=== PATIENT | male | born 1995 | race African-American/Black ===

== ENCOUNTER 2019-02-14 03:47 | Emergency (ER) | payer SELFPAY ==
[2019-02-14] MEDS ORDERED: RINGERS SOLUTION,LACTATED 1,000 ML IV ONE (05:12)
[2019-02-14 06:33] LABS: HEMATOCRIT 44.4 % (37.9-51.0); HEMOGLOBIN 15.2 g/dL (13.5-17.0); MEAN CORPUSCULAR HEMOGLOBIN 31.5 pg (27.0-33.4); MEAN CORPUSCULAR HGB CONC 34.1 g/dL (32.0-36.0); MEAN CORPUSCULAR VOLUME 92 fl (80-97); PLATELET COUNT 214 10^3/uL (150-450); RED BLOOD COUNT 4.81 10^6/uL (4.35-5.55); RED CELL DISTRIBUTION WIDTH 12.7 % (11.5-14.0); WHITE BLOOD COUNT 6.9 10^3/uL (4.0-10.5)
[2019-02-14 06:52] LABS: ALBUMIN 4.8 g/dL (3.5-5.0); ALKALINE PHOSPHATASE 62 U/L (38-126); ANION GAP 10 (5-19); ASPARTATE AMINO TRANSFERASE 21 U/L (17-59); BILIRUBIN,DIRECT 0.1 mg/dL (0.0-0.4); BILIRUBIN,TOTAL 0.9 mg/dL (0.2-1.3); BLOOD UREA NITROGEN 18 mg/dL (7-20); CALCIUM 9.7 mg/dL (8.4-10.2); CARBON DIOXIDE 27 mmol/L (22-30); CHLORIDE 102 mmol/L (98-107); GLUCOSE 73 mg/dL (75-110); POTASSIUM 4.2 mmol/L (3.6-5.0); TOTAL PROTEIN 7.9 g/dL (6.3-8.2)
--- NOTE | 2019-02-14 07:37 | RADIOLOGY REPORT (SQ) ---
Chest single view on 02/14/2019 at 5:37 AM CLINICAL INDICATION: Chest pain, abnormal weight loss COMPARISON: None FINDINGS: The lungs are clear. Cardiac, hilar and mediastinal contours are within normal limits. Pulmonary vascularity is within normal limits. No bony abnormality is noted. IMPRESSION: No active disease.
[2019-02-14 08:15] LABS: APPEARANCE,URINE CLEAR; BILIRUBIN,URINE NEGATIVE (NEGATIVE); COLOR,URINE YELLOW; GLUCOSE, URINE NEGATIVE (NEGATIVE); KETONES,URINE TRACE mg/dL (NEGATIVE); LEUKOCYTE ESTERASE,URINE NEGATIVE (NEGATIVE); NITRITE,URINE NEGATIVE (NEGATIVE); PROTEIN,URINE NEGATIVE (NEGATIVE); UROBILINOGEN,URINE NEGATIVE mg/dL (<2.0)
[2019-02-14 08:22] VITALS: BP 108/61
[2019-02-14 08:33] LABS: URINE AMPHETAMINES SCREEN UNCONFIRMED POSITIVE; URINE BARBITURATES SCREEN NEGATIVE; URINE BENZODIAZEPINES SCREEN NEGATIVE; URINE COCAINE SCREEN NEGATIVE; URINE MARIJUANA (THC) SCREEN NEGATIVE; URINE METHADONE SCREEN NEGATIVE; URINE PHENCYCLIDINE SCREEN NEGATIVE
--- NOTE | 2019-02-14 09:24 | ER Document Report ---
Entered by YAMILA RODRIGUEZ SCRIBE 02/14/19 0748 Acting as scribe for:MARK BELL MD ED General <CHEVY SWAIN - Last Filed: 02/14/19 10:25> - General TRAVEL OUTSIDE OF THE [place] IN LAST 30 DAYS: No <MARK BELL - Last Filed: 02/14/19 12:08> - General Chief Complaint: Weakness Stated Complaint: ABDOMINAL PAIN,NAUSEA Time Seen by Provider: 02/14/19 04:54 Primary Care Provider: [facility] [Outside] - Follow up as needed JOSH QUEZADA DO [Primary Care Provider] - Follow up as needed Notes: 23-year-old male who presents to the emergency department today with complaints of "feeling dehydrated". Patient states he has been drinking a lot, has had double vision, dry lips, and his body has been shaking. Patient does endorse a history of anxiety and he states "my mother thinks I am bipolar". Patient states he has been having mood swings for several years, starting at about the age of 17. Patient states as a child he was treated for anger management and ADHD but has not been on any medication for several years. Patient states he has been trying to gain weight but has not been successful, stating he might have even lost a few pounds. Patient then states that he does not have a lot of money and if he is not at work he only eats once a day. Patient states that meal would consist of 3 to 4 packs of Ramen noodles. Patient states when he is at work he does eat large meals. Patient works at [employer]. (MARK BELL) Past Medical History - General Information source: Patient - Social History Smoking Status: Current Every Day Smoker Cigarette use (# per day): Yes - 1/2 ppd Frequency of alcohol use: Rare Drug Abuse: None Lives with: Family Family History: Reviewed & Not Pertinent Patient has suicidal ideation: No Patient has homicidal ideation: No <MARK BELL - Last Filed: 02/14/19 12:08> Review of Systems - Review of Systems Constitutional: See HPI, Other - feels dehydrated EENT: See HPI, Blurred vision, Double vision Cardiovascular: See HPI, Lightheaded Respiratory: No symptoms reported Gastrointestinal: No symptoms reported Genitourinary: No symptoms reported Male Genitourinary: No symptoms reported Musculoskeletal: No symptoms reported Skin: No symptoms reported Hematologic/Lymphatic: No symptoms reported Neurological/Psychological: See HPI -: Yes All other systems reviewed and negative <MARK BELL - Last Filed: 02/14/19 12:08> Physical Exam <MARK BELL - Last Filed: 02/14/19 12:08> - Vital signs Vitals: Temp Pulse Resp BP Pulse Ox 98.0 F 86 16 117/71 98 02/14/19 03:52 02/14/19 03:52 02/14/19 03:52 02/14/19 03:52 02/14/19 03:52 - Notes Notes: Physical Exam: General: Alert, appears well, thin. HEENT: Normocephalic. Atraumatic. PERRL. Extraocular movements intact. Oropharynx clear. Thyroid is normal. Neck: Supple. Non-tender. Respiratory: No respiratory distress. Clear and equal breath sounds bilaterally. Cardiovascular: Regular rate and rhythm. Abdominal: Normal Inspection. Non-tender. No distension. Normal Bowel Sounds. Back: No gross abnormalities. Extremities: Moves all four extremities. Upper extremities: Normal inspection. Normal ROM. Lower extremities: Normal inspection. No edema. Normal ROM. Neurological: Normal cognition. AAOx4. Normal speech. Psychological: Normal affect. Normal Mood. Skin: Warm. Dry. Normal color. (MARK BELL) Course - Laboratory Result Diagrams: 02/14/19 06:12 02/14/19 06:12 <CHEVY SWAIN - Last Filed: 02/14/19 10:25> - Laboratory Result Diagrams: 02/14/19 06:12 02/14/19 06:12 - EKG Interpretation by Tx EKG shows normal: Sinus rhythm, [place], Intervals, QRS Complexes. abnormal: ST-T Waves - ST elevation, probable normal early repolarization Rate: Normal - 58 Rhythm: NSR [place]/QRS: RBBB - Incomplete right bundle branch block Voltage: Throughout P Waves: LAE - Probable left atrial abnormality <MARK BELL - Last Filed: 02/14/19 12:08> - Re-evaluation Re-evalutation: 02/14/19 09:04 After a positive drug screen for methamphetamine, the patient admits to taking someone's Adderall yesterday. (RAY,MARK) - Vital Signs Vital signs: Temp Pulse Resp BP Pulse Ox 98.0 F 64 16 108/61 99 02/14/19 08:21 02/14/19 08:21 02/14/19 03:52 02/14/19 08:21 02/14/19 08:21 - Laboratory Laboratory results interpreted by me: 02/14/19 02/14/19 06:12 06:12 Glucose 73 L Urine Ketones TRACE H Discharge <CHEVY SWAIN - Last Filed: 02/14/19 10:25> <MARK BELL - Last Filed: 02/14/19 12:08> - Discharge Clinical Impression: Anxiety Condition: Stable Disposition: HOME, SELF-CARE Additional Instructions: You have been evaluated by both medical and behavioral teams and have been deemed appropriate for discharge and return to work. You have been provided with a community mental health resource list to assist with mental health services and medication management. Please follow up with a mental health provider and a physician to assist with medication management. You have been provided with prescription program information to assist with medication costs. It is advised that you refrain from taking prescription medications prescribed to others. You have been provided with the contact information to mobile crisis, as needed. AMPHETAMINE / METHAMPHETAMINE ABUSE: Amphetamines are addicting stimulants. Amphetamines overstimulate the nervous system and give a false feeling of power and mastery. These drugs may be obtained as prescription pills for weight loss, narcolepsy, or attention-deficit disorder. More often they're bought as an illegal street drug, methamphetamine (crank, crystal, speed). Using amphetamines repeatedly can lead to serious medical problems including malnutrition, severe depression, and paranoia. It can take increasing amounts to feel good. Eventually, there will be a "burn out." When you go off amphetamines there is a period of depression that may last for weeks or even months. High doses of amphetamines can cause seizures, confusion, hallucinations, delusions, high blood pressure, muscle damage, heart damage, or sudden . Many times these deadly complications occur even with "normal" doses. Injection of amphetamines is risky for developing abscesses, endocarditis (heart infection), pneumonia, and AIDS. Withdrawal from amphetamines often causes anxiety, depression, and drug cravings. Some users become paranoid and psychotic. There may be cramps, nausea, and vomiting. Many treatment programs are available, but you must make the decision to quit. Medication can be prescribed to control the symptoms of amphetamine toxicity (beta blockers or benzodiazepines). Withdrawal symptoms may require tranquilizers. Anxiety The physician feels that some of your health problems are being caused by anxiety. Anxiety affects your health in many ways. Anxiety alone can cause palpitations, sweats, chest pains, abdominal pains, shortness of breath, and headaches. It contributes to ulcer disease, high blood pressure, irritable bowel syndrome, and has been shown to cause flare-ups of many other diseases. Anxiety is not a simple disorder to treat. If the anxiety is due to recent life stresses, you may simply need time to "work through" the changes. If the anxiety is due to an underlying unhappiness with yourself or due to psychiatric disturbance, professional help will be needed. Your physician can refer you for further help if needed. Anti-anxiety medication is occasionally given if the stress is acute or if you are having trouble sleeping. Chronic or frequent use of these medications is not a good idea because the body becomes reliant on it, preventing you from dealing with life's normal stresses. Depression Your evaluation reveals that you have mental depression. While symptoms may be vague, they often include disturbance of sleep, fatigue, loss of appetite, and general loss of interest in life. While depression may be a side effect of drugs, or a reaction to a major change in your life, many cases have no known cause. If depression is acute, and related to a major loss in your life, you can expect it to clear completely with time. If you have been depressed a long time, are prone to repeated bouts of depression or low mood, or have been thinking of suicide, get help. Depression can be treated with anti-depressant medication and counselling. Long-term depression will often take a few weeks to clear, even with appropriate medication. Follow-up care is important. Contact your physician, the hospital emergency center, crisis line, or your counsellor if you are losing control or having self-destructive thoughts. FOLLOW-UP CARE: If you have been referred to a physician for follow-up care, call the [facility] office for an appointment as you were instructed or within the next two days. If you experience worsening or a significant change in your symptoms, notify the physician immediately or return to the Emergency Department at any time for re-evaluation. Prescriptions: Buspirone HCl [Buspar 5 mg Tablet] 1 tab PO BID #10 tab Forms: Return to Work Referrals: JOSH QUEZADA DO [Primary Care Provider] - Follow up as needed [facility] [Outside] - Follow up as needed Scribe Attestation: 02/14/19 08:52 I personally performed the services described in the documentation, reviewed and edited the documentation which was dictated to the scribe in my presence, and it accurately records my words and actions. (MARK BELL) I personally performed the services described in the documentation, reviewed and edited the documentation which was dictated to the scribe in my presence, and it accurately records my words and actions.
--- NOTE | 2019-02-14 13:37 | PSYCHOLOGICAL NOTE ---
Psych Note - Psych Note Date seen by psych provider: 02/14/19 Time seen by psych provider: 08:20 Psych Note: Reason for consult: Anxiety Patient presented to ED via POV. Patient reports a history of mood swings with depression and anxiety. Patient states he is under increasing stress, resulting in an increase in depressive and anxiety symptoms. Patient reports anger problems. Patient describes being parentified child. Patient states his mother has anemia, and goes to work and comes home and gets in the bed. 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 Patient states he lives with grandmother, mother, and younger sister. Patient states he has to work to help pay the bills. Patient reports mood swings and anger are interfering with his social and occupational functioning. Patient reports issues with dizziness and feeling like Im going to pass out. Patient denies current illicit substance use, however stated he took an Adderall, a blue pill, from a friend to help get me through the night. Patient urine drug screen is positive for Amphetamines. Patient states he was sent home from work last night because I am dehydrated. I felt like I was going to pass out and vomit. I told my boss he could either let me go home or Id have to vomit all over the grill. Clinician observed small circular barron on both patients arms. Patient stated they were flea bites that he picks. Patient reports same barron on legs. As conversation continued, patient stated he primarily needs an excuse for missing work, and he wants to find out whats wrong with me. Patient denies suicidal and homicidal ideation. Patient is not engaged in mental health services and is not currently taking any prescription medications. Patient reports previous suicidal ideation several years ago, and my dad took me to the [facility] in [place] but they let me go 3 hours later because I wasnt crazy. Patient again denied suicidal ideation and continued that Im only 23 years old. I want a family. Patient is alert and oriented to person, place, time and circumstance. Mood is eurythmic/normal with congruent affect as evidenced by smiling, laughing and engaging with clinician. Patient denies suicidal and homicidal ideation. Delusions are absent and behavior is congruent with an intact reality based presentation (i.e. organized and linear thought processes). Patient denies auditory and visual hallucinations. There is no observed behavior that suggests patient is responding to internal stimuli. Eye contact is good. Conversational speech is within normal rate, tone, and prosody. Intellectual ability appears to be within average range. Attention and concentration are good. Insight, judgment, and impulse control are fair. DSM Diagnosis: Depression Medication recommendations per [facility] contracted psychiatrist Dr. Jose SWANSON is as follows: Buspar, 5MG, twice per day. Impression/Plan: Patient is cleared from acute psychiatric services. Patient does not meet IVC criteria per [place] GS 122C. At this time, patient is demonstrating insight and judgment into his current situation and is able to thoughtfully and purposefully participate in plan of care development. Patient denies suicidal and homicidal ideation. Patient denies auditory and visual hallucinations. Patient was able to identify a strong support system in grandmother. Mother is in the room with patient. Patient states he is motivated to engage in mental health services and medication management. Patient is experiencing several social stressors, however his coping skills are underdevelo ped. Patient will benefit from outpatient therapeutic services to develop coping and emotional regulation skills to manage stressors related to activities of daily functioning. Patient will be provided with community outpatient referral list and prescription program information to provide assistance with prescription cost. Dr. Moreno was consulted on the care and management of this patient; attending physician is in agreement with recommendations and disposition.
--- NOTE | 2019-02-14 14:41 | EKG REPORT ---
SEVERITY:- ABNORMAL ECG - SINUS RHYTHM PROBABLE LEFT ATRIAL ABNORMALITY INCOMPLETE RIGHT BUNDLE BRANCH BLOCK ST ELEV, PROBABLE NORMAL EARLY REPOL PATTERN : Confirmed by: Luz Varela MD 14-Feb-2019 14:40:34
== END 2019-02-14 11:44 | disposition home or self-care (01) ==
LOC: ER 03:47
DX: F41.9 Anxiety disorder, unspecified (principal); R53.1 Weakness; F32.9 Major depressive disorder, single episode, unspecified; R11.0 Nausea; R10.9 Unspecified abdominal pain; R42 Dizziness and giddiness; F17.210 Nicotine dependence, cigarettes, uncomplicated
CPT/HCPCS: 93005; 36415; 84443; 85027; 80053; 81001; 80307; 71045; 93010; J7120

== ENCOUNTER 2019-04-23 19:26 | Emergency (ER) | payer SELFPAY ==
[2019-04-23 19:36] VITALS: BP 122/74
[2019-04-23] MEDS ORDERED: IPRATROPIUM/ALBUTEROL 0.5-2.5 MG/3 ML AMPUL NEB ONE (21:04)
[2019-04-23] MEDS ORDERED: DEXAMETHASONE SOD PHOS INJ 10 MG/1 ML VIAL IM ONE (21:05)
[2019-04-23] MEDS ORDERED: ALBUTEROL SULFATE HFA (90 MCG/PUFF) 8 GM MDI (1 MDI/ER DISP) IH ONE (21:05)
--- NOTE | 2019-04-23 21:09 | ER Document Report ---
HPI - HPI Time Seen by Provider: 04/23/19 20:58 Pain Level: Denies Context: 23-year-old male with asthma presents emergency department for mild asthma exacerbation. Patient states that he was wheezing and his chest was tight prior to arrival. He went and got a Primatene Mist just prior to arrival, took a couple of puffs in the waiting room, and states he feels much better. He is a smoker. No fevers or chills, patient with a recent upper respiratory infection, no other complaints. Past Medical History - Social History Smoking Status: Current Some Day Smoker Family History: Reviewed & Not Pertinent Patient has suicidal ideation: No Patient has homicidal ideation: No Pulmonary Medical History: Reports: Hx Asthma Vertical Provider Document - CONSTITUTIONAL Notes: PHYSICAL EXAMINATION: Reviewed vital signs and charting by RN GENERAL: Alert, interacts well. No acute distress. HEAD: Normocephalic, atraumatic. EYES: Pupils equal and round. Extraocular movements intact. ENT: Oral mucosa moist, tongue midline. NECK: Full range of motion. Trachea midline. LUNGS: Mild end expiratory wheezing i. No respiratory distress. HEART: Regular rate and rhythm. No murmur ABDOMEN: soft, non-tender. No distention. Bowel sounds present EXTREMITIES: Moves all 4 extremities spontaneously. No edema, No cyanosis. PSYCH: Normal affect, normal mood. SKIN: Warm, dry, normal turgor. No rashes or lesions noted. - INFECTION CONTROL TRAVEL OUTSIDE OF THE [place] IN LAST 30 DAYS: No Course - Re-evaluation Re-evalutation: 04/23/19 21:09 Patient presents with a mild exacerbation of their baseline asthma. Mild wheezing at time of presentation but vitals do not show significant hypoxemia or tachypnea. No retractions. Patient did clinically improve after receiving nebulizers here in the emergency department. Patient able to ambulate without any respiratory distress. Based on patient's overall reassuring assessment, I believe they are stable for outpatient management with steroids. I do not suspect an acute alternative pathology at this time based on history and exam including acute pulmonary embolus, ACS, pneumothorax, or aortic dissection. At this time will discharge with return precautions and follow-up recommendations. Verbal discharge instructions given a the bedside and opportunity for questions given. Medication warnings reviewed. Patient is in agreement with this plan and has verbalized understanding of return precautions and the need for primary care follow-up in the next 24-72 hours. - Vital Signs Vital signs: Temp Pulse Resp BP Pulse Ox 97.5 F 89 18 122/74 97 04/23/19 19:35 04/23/19 19:35 04/23/19 19:35 04/23/19 19:35 04/23/19 19:35 Discharge - Discharge Clinical Impression: Mild asthma exacerbation Condition: Good Disposition: HOME, SELF-CARE Additional Instructions: You were seen for an asthma exacerbation. Your symptoms improved with treatment here in the emergency department. However, it is very important that you return to the emergency department immediately if you began to have worsening difficulty breathing that does not respond to your normal home nebulizers. You have also received a steroid shot here in the emergency department. Please also follow closely with your primary care physician when you obtain insurance. You should also return to emergency department if you develop fever greater than 101, persistent cough, persistent vomiting, pass out, or any other symptoms that are concerning to you. Referrals: JOSH QUEZADA, DO [Primary Care Provider] - Follow up as needed
== END 2019-04-23 21:21 | disposition home or self-care (01) ==
LOC: ER 19:26
DX: J45.21 Mild intermittent asthma with (acute) exacerbation (principal); F17.200 Nicotine dependence, unspecified, uncomplicated
CPT/HCPCS: 94640; 99284; 96372; J1100; J3490; J7620

== ENCOUNTER 2019-05-11 13:44 | Emergency (ER) | payer SELFPAY ==
[2019-05-11 14:18] VITALS: BP 104/65
--- NOTE | 2019-05-11 14:28 | ER Document Report ---
ED Medical Screen (RME) - General Chief Complaint: Nausea/Vomiting Stated Complaint: VOMITING BLOOD Time Seen by Provider: 05/11/19 14:22 Primary Care Provider: JOSH QUEZADA DO [ACTIVE STAFF] - Follow up as needed Mode of Arrival: Ambulatory Information source: Patient Notes: 23-year-old male presented to ED for cough cold congestion. He states that the coughing has been making him throw up because he gags when he coughs. He does not have any fever. He does have a sore throat. Is alert oriented respirations regular nonlabored speaking in full sentences. He states the pain is much less now that he knows what is in the back of his throat. TRAVEL OUTSIDE OF THE [place] IN LAST 30 DAYS: No - HPI Onset: Other - Couple days Onset/Duration: Gradual Quality of pain: Other - Sore throat Severity: Moderate Pain Level: 2 Associated Symptoms: Nausea - When he coughs, Rhinorrhea, Sinus pain/drainage, Sore throat Exacerbated by: Coughing Relieved by: Denies Similar symptoms previously: Yes Recently seen / treated by doctor: No - Related Data Smoking: Cigarettes - 2 black miles a day Frequency of alcohol use: Social Drug Abuse: None Allergies/Adverse Reactions: No Known Allergies Allergy (Unverified 04/23/19 20:57) Past Medical History - General Information source: Patient - Social History Cigarette use (# per day): Yes - Black miles a day Frequency of alcohol use: Social - Weekly Drug Abuse: None Occupation: Call center Lives with: Alone Family history: Reviewed & Not Pertinent - Past Medical History Cardiac Medical History: Reports: None Pulmonary Medical History: Reports: Hx Asthma EENT Medical History: Reports: None Neurological Medical History: Reports: None Endocrine Medical History: Reports: None Renal/ Medical History: Reports: None Malignancy Medical History: Reports None GI Medical History: Reports: None Musculoskeltal Medical History: Reports None Skin Medical History: Reports None Psychiatric Medical History: Reports: None Traumatic Medical History: Reports: Hx Fractures - Clavicle Infectious Medical History: Reports: None Surgical Hx: Negative Past Surgical History: Reports: None Review of Systems - Review of Systems Constitutional: Recent illness EENT: Nose discharge, Sinus discharge, Throat pain Cardiovascular: No symptoms reported Respiratory: No symptoms reported Gastrointestinal: Other - Vomit when he coughs Genitourinary: No symptoms reported Male Genitourinary: No symptoms reported Musculoskeletal: No symptoms reported Skin: No symptoms reported Hematologic/Lymphatic: No symptoms reported Neurological/Psychological: No symptoms reported -: Yes All other systems reviewed and negative Physical Exam - Vital signs Vitals: Temp Pulse Resp BP Pulse Ox 98.5 F 68 16 104/65 99 05/11/19 14:03 05/11/19 14:03 05/11/19 14:03 05/11/19 14:03 05/11/19 14:03 Interpretation: Normal - General General appearance: Appears well, Alert - HEENT Head: Normocephalic, Atraumatic Eyes: Normal Pupils: PERRL Ears: Normal External canal: Normal Tympanic membrane: Normal Sinus: Normal Nasal: Purulent discharge, Swelling Mouth/Lips: Normal Mucous membranes: Normal Pharynx: Erythema, Post nasal drainage. No: Tonsillar hypertrophy Neck: Normal - Respiratory Respiratory status: No respiratory distress Chest status: Nontender Breath sounds: Nonproductive cough Chest palpation: Normal - Cardiovascular Rhythm: Regular Heart sounds: Normal auscultation Murmur: No - Abdominal Inspection: Normal Distension: No distension Bowel sounds: Normal Tenderness: Nontender Organomegaly: No organomegaly - Back Back: Normal, Nontender - Extremities General upper extremity: Normal inspection, Nontender, Normal color, Normal ROM, Normal temperature General lower extremity: Normal inspection, Nontender, Normal color, Normal ROM, Normal temperature, Normal weight bearing. No: Trenton's sign - Neurological Neuro grossly intact: Yes Cognition: Normal Orientation: AAOx4 Staples Coma Scale Eye Opening: Spontaneous Staples Coma Scale Verbal: Oriented Staples Coma Scale Motor: Obeys Commands Gerardo Coma Scale Total: 15 Speech: Normal Motor strength normal: LUE, RUE, LLE, RLE Sensory: Normal - Psychological Associated symptoms: Normal affect, Normal mood - Skin Skin Temperature: Warm Skin Moisture: Dry Skin Color: Normal Course - Re-evaluation Re-evalutation: 05/11/19 18:56 Strep was negative and written report of strep given to patient. Patient states the nausea and vomiting was due to the coughing and sore throat. He states he was not nauseated he just gagged and then vomited. He does have an upper respiratory infection and treatment for upper respiratory infection was discussed with patient. Patient was discharged home after he verbalized understanding and agreement with treatment plan. - Vital Signs Vital signs: Temp Pulse Resp BP Pulse Ox 98.5 F 68 16 104/65 99 05/11/19 14:03 05/11/19 14:03 05/11/19 14:03 05/11/19 14:03 05/11/19 14:03 Doctor's Discharge - Discharge Clinical Impression: Viral sore throat URI (upper respiratory infection) Qualifiers: URI type: unspecified viral URI Qualified Code(s): J06.9 - Acute upper respiratory infection, unspecified Condition: Stable Disposition: HOME, SELF-CARE Additional Instructions: UPPER RESPIRATORY ILLNESS: You have a viral infection of the respiratory passages -- a "cold." This common infection causes nasal congestion, drainage, and often sore throat and cough. It is highly contagious. The disease usually lasts about 10 to 14 days. There is no "cure" for the viral infection -- it must run its course. If there is a complication, such as bacterial infection in the nose, sinuses, middle ear, or bronchial tubes, antibiotics may be required. The antibiotics won't affect the virus. Drink plenty of fluids. A humidifier may help. An expectorant medication or decongestant may make you more comfortable. Use acetaminophen or ibuprofen for fever or aches. See the doctor if fever persists over two days, if there is any significant worsening of your symptoms, or if you simply fail to improve as expected. You have been recommended treatment with Claritin 10 mg Sudafed 30 mg and Mucinex 600 mg. These are all yfuw-pyh-yjowjyf medications for cough cold congestion. You do need to call the go to the pharmacist to get the Sudafed from behind the counter please get a little red pills they are more effective. You could also use Flonase which is ocaf-omo-ylwklmt 1 spray each nostril twice a day. You could also use salt soda solution gargles. These will help to remove the drainage from the back your throat. Chloraseptic spray was rvmz-rzi-shpbelv that will also help with your sore throat. Salt and soda solution gargle 1 quart of water 1 tablespoon of salt 1 teaspoon of baking soda Mixed 3 ingredients together and boil for 1 minute Placed in a covered quart jar Use 1/2 ounce of cold solution to gargle 3 times a day COUGH-SUPPRESSANT & EXPECTORANT MEDICATION: You are to use a cough medication as needed for relief of symptoms. This medicine is a combination of an expectorant (to make the mucous thinner and more easily "coughed up") and a cough suppressant (to reduce the frequency of coughing). The cough-suppressant medicine is related to narcotics. You may experience mild nausea and sleepiness. Some patients who are very sensitive to narcotics may have stomach pain from this medicine. Taking the medicine with food reduces these side effects. Do not drive or work with machinery until you know how this medicine affects you. The expectorant should have no side effects. Iodine-containing expectorants (such as organidin) should not be taken by persons with active thyroid disease unless approved by your doctor. Call the doctor if you develop shortness of breath, hives, rash, itching, lightheadedness, or severe nausea and vomiting. USE OF ACETAMINOPHEN (Tylenol): Acetaminophen may be taken for pain relief or fever control. It's much safer than aspirin, offering a wider range of "safe" dosages. It is safe during . Some brand names are Tylenol, Panadol, Datril, Anacin 3, Tempra, and Liquiprin. Acetaminophen can be repeated every four hours. The following are maximum recommended dosages: >89 pounds or adults 650 mg to 900 mg Acetaminophen can be repeated every four hours. Maximum dose not to exceed 4000 mg a day. SMOKING: If you smoke, you should stop smoking. The tar and chemicals in cigarette smoke are harmful. Smoking has been shown to cause: emphysema chronic bronchitis lung cancer mouth and throat cancer stomach and pancreas cancer premature aging defects In addition, smoking increases ear and lung infections in children of smokers. FOLLOW-UP CARE: If you have been referred to a physician for follow-up care, call the physicians office for an appointment as you were instructed or within the next two days. If you experience worsening or a significant change in your symptoms, notify the physician immediately or return to the Emergency Department at any time for re-evaluation. Forms: Return to Work Referrals: JOSH QUEZADA, [ACTIVE STAFF] - Follow up as needed
== END 2019-05-11 15:06 | disposition home or self-care (01) ==
LOC: ER 13:44
DX: J06.9 Acute upper respiratory infection, unspecified (principal); J02.9 Acute pharyngitis, unspecified; B97.89 Other viral agents as the cause of diseases classified elsewhere; R11.2 Nausea with vomiting, unspecified; R05 Cough; R09.81 Nasal congestion; J34.89 Other specified disorders of nose and nasal sinuses; R51 Headache; F17.210 Nicotine dependence, cigarettes, uncomplicated; J45.909 Unspecified asthma, uncomplicated
CPT/HCPCS: 87070; 87880; 99283

== ENCOUNTER 2019-09-13 11:51 | Emergency (ER) | payer SELFPAY ==
--- NOTE | 2019-09-13 13:20 | ER Document Report ---
ED ENT - General Chief Complaint: Sore Throat Stated Complaint: COUGH Time Seen by Provider: 09/13/19 12:53 Mode of Arrival: Ambulatory Information source: Patient Notes: 23-year-old male past medical history significant for asthma presents to the emergency room complaining of a sore throat for the past 3 to 4 days. Some postnasal drip with a dry cough. Denies any fevers. Eating and drinking normally. No ill contacts. Has been trying cough drops and tea with minimal relief. No recent travel, no COVID-19 exposure. TRAVEL OUTSIDE OF THE [place] IN LAST 30 DAYS: No - Related Data Allergies/Adverse Reactions: No Known Allergies Allergy (Unverified 04/23/19 20:57) Home Medications: inhaler Past Medical History - General Information source: Patient - Social History Smoking Status: Current Every Day Smoker Chew tobacco use (# tins/day): No Frequency of alcohol use: Occasional Drug Abuse: None Family History: Reviewed & Not Pertinent Patient has homicidal ideation: No Pulmonary Medical History: Reports: Hx Asthma Traumatic Medical History: Reports: Hx Fractures - Clavicle Review of Systems - Review of Systems Constitutional: No symptoms reported EENT: Sinus discharge, Throat pain Cardiovascular: No symptoms reported Respiratory: No symptoms reported Musculoskeletal: No symptoms reported Skin: No symptoms reported Neurological/Psychological: No symptoms reported -: Yes All other systems reviewed and negative Physical Exam - Vital signs Vitals: Temp 98.1 F 09/13/19 12:02 - General General appearance: Appears well, Alert In distress: None - HEENT Head: Normocephalic, Atraumatic Eyes: Normal Pupils: PERRL External canal: Normal Tympanic membrane: Normal Sinus: Normal Nasal: Normal Mouth/Lips: Normal Pharynx: Erythema. No: Exudate Neck: Normal. No: Kernig's, Lymphadenopathy, Meningismus - Respiratory Respiratory status: No respiratory distress Chest status: Nontender Breath sounds: Normal Chest palpation: Normal - Cardiovascular Rhythm: Regular Heart sounds: Normal auscultation Murmur: No - Neurological Neuro grossly intact: Yes Cognition: Normal Orientation: AAOx4 Gerardo Coma Scale Eye Opening: Spontaneous Gerardo Coma Scale Verbal: Oriented Gerardo Coma Scale Motor: Obeys Commands Gerardo Coma Scale Total: 15 Speech: Normal Motor strength normal: LUE, RUE, LLE, RLE Sensory: Normal - Skin Skin Temperature: Warm Skin Moisture: Dry Skin Color: Normal Course - Re-evaluation Re-evalutation: 09/13/19 14:46 Patient is afebrile, nontoxic-appearing, tolerates p.o. fluids. Reviewed negative strep test results with patient. Will be notified if throat culture is positive. Counseled on viral illness. Counseled on supportive therapy. Will be notified if throat culture comes back positive. Patient was given strict return to the emergency room guidelines. Return for any new or worsening symptoms. All questions were answered. Patient verbalized understanding and agrees with plan of care. 09/13/19 16:17 - Vital Signs Vital signs: Temp Pulse Resp BP Pulse Ox 97.9 F 50 L 16 111/70 97 09/13/19 14:31 09/13/19 14:31 09/13/19 14:31 09/13/19 14:31 09/13/19 14:31 Discharge - Discharge Clinical Impression: Acute pharyngitis Qualifiers: Pharyngitis/tonsillitis etiology: unspecified etiology Qualified Code(s): J02.9 - Acute pharyngitis, unspecified Condition: Stable Disposition: HOME, SELF-CARE Instructions: Sore Throat ([facility]) Additional Instructions: Your strep test is negative. Your symptoms are likely due to an viral infection and will resolve in the next 1-2 weeks. You have also been given a dose of steroids to help with your throat discomfort. Please continue to take ibuprofen 600 mg every 6 hours or Tylenol 1000 mg every 6 hours as needed for throat discomfort. You can also gargle with salt water. Continue to drink plenty of fluids. Follow-up with your primary care doctor in the next several days. Return if you become unable to swallow, have difficulty breathing, pass out, have persistent vomiting that prevents you from being able to tolerate fluids, or have any other symptoms that are concerning to you. Forms: Return to Work
[2019-09-13 14:39] VITALS: BP 111/70
== END 2019-09-13 15:02 | disposition home or self-care (01) ==
LOC: ER 11:51
DX: J02.9 Acute pharyngitis, unspecified (principal); R09.82 Postnasal drip; R05 Cough; F17.200 Nicotine dependence, unspecified, uncomplicated; J45.909 Unspecified asthma, uncomplicated; Z79.899 Other long term (current) drug therapy
CPT/HCPCS: 87070; 87880; 99283

== ENCOUNTER 2020-02-15 10:40 | Emergency (ER) | payer SELFPAY ==
--- NOTE | 2020-02-15 11:06 | ER Document Report ---
ED Medical Screen (RME) - General Chief Complaint: Dizziness Stated Complaint: BLURRY VISION/ABDOMINAL PAIN/DIZZINESS Time Seen by Provider: 02/15/20 11:01 TRAVEL OUTSIDE OF THE [place] IN LAST 30 DAYS: No - HPI Notes: 02/15/20 11:04 24-year-old male with a history of asthma presents to the emergency room today for complaints of lightheadedness, dizziness, increased voiding, abdominal pain that started approximately 3 months ago but has become worse in the last few days. Patient states he is having some nausea after he gets up from a standing position in which he feels dizzy. Has not tried any svdj-usg-sjphquj medications. Denies any history of diabetes. Has been eating and drinking without any issues. Denies any fevers or chills, chest pain shortness of breath. Denies any illicit drug use I have greeted and performed a rapid initial assessment of this patient. A comprehensive ED assessment and evaluation of the patient, analysis of test results and completion of the medical decision making process will be conducted by additional ED providers. PHYSICAL EXAMINATION: GENERAL: Well-appearing, well-nourished and in no acute distress. HEAD: Atraumatic, normocephalic. CV: s1, s2 regular LUNGS: No respiratory distress Musculoskeletal: Normal range of motion NEUROLOGICAL: Normal speech, normal gait. SKIN: Warm, Dry, normal turgor, no rashes or lesions noted. - Related Data Allergies/Adverse Reactions: No Known Allergies Allergy (Unverified 04/23/19 20:57) Past Medical History - Social History Family history: Reviewed & Not Pertinent Pulmonary Medical History: Reports: Hx Asthma Traumatic Medical History: Reports: Hx Fractures - Clavicle
[2020-02-15 11:40] LABS: ABSOLUTE EOSINOPHILS # (AUTO) 0.4 10^3/uL (0.0-0.6); ABSOLUTE LYMPHOCYTES (AUTO) 1.7 10^3/uL (0.5-4.7); ABSOLUTE MONOCYTES (AUTO) 0.7 10^3/uL (0.1-1.4); BASOPHILS % (AUTO) 0.6 % (0-2); EOSINOPHILS % (AUTO) 5.6 % (0-6); HEMATOCRIT 46.5 % (37.9-51.0); HEMOGLOBIN 16.1 g/dL (13.5-17.0); LYMPHOCYTES % (AUTO) 24.9 % (13-45); MEAN CORPUSCULAR HEMOGLOBIN 32.2 pg (27.0-33.4); MEAN CORPUSCULAR HGB CONC 34.6 g/dL (32.0-36.0); MEAN CORPUSCULAR VOLUME 93 fl (80-97); MONOCYTES % (AUTO) 10.5 % (3-13); PLATELET COUNT 214 10^3/uL (150-450); RED BLOOD COUNT 4.99 10^6/uL (4.35-5.55); RED CELL DISTRIBUTION WIDTH 13.2 % (11.5-14.0); SEGMENTED NEUTROPHILS % (AUTO) 58.4 % (42-78); TOTAL CELLS COUNTED % (AUTO) 100 %; WHITE BLOOD COUNT 6.8 10^3/uL (4.0-10.5)
[2020-02-15 11:43] LABS: APPEARANCE,URINE CLEAR; BILIRUBIN,URINE NEGATIVE (NEGATIVE); COLOR,URINE YELLOW; GLUCOSE, URINE NEGATIVE (NEGATIVE); KETONES,URINE NEGATIVE (NEGATIVE); LEUKOCYTE ESTERASE,URINE NEGATIVE (NEGATIVE); NITRITE,URINE NEGATIVE (NEGATIVE); PROTEIN,URINE NEGATIVE (NEGATIVE); UROBILINOGEN,URINE NEGATIVE mg/dL (<2.0)
[2020-02-15 11:58] LABS: ALBUMIN 4.6 g/dL (3.5-5.0); ALKALINE PHOSPHATASE 59 U/L (38-126); ANION GAP 8 (5-19); ASPARTATE AMINO TRANSFERASE 26 U/L (17-59); BLOOD UREA NITROGEN 17 mg/dL (7-20); CALCIUM 9.7 mg/dL (8.4-10.2); CARBON DIOXIDE 28 mmol/L (22-30); CHLORIDE 102 mmol/L (98-107); GLUCOSE 90 mg/dL (75-110); POTASSIUM 4.7 mmol/L (3.6-5.0); TOTAL PROTEIN 7.6 g/dL (6.3-8.2)
--- NOTE | 2020-02-15 13:04 | EKG REPORT ---
SEVERITY:- ABNORMAL ECG - SINUS RHYTHM INCOMPLETE RIGHT BUNDLE BRANCH BLOCK, L POST FASCICULAR BLOCK ST ELEV, PROBABLE NORMAL EARLY REPOL PATTERN : Confirmed by: Severo Tuttle MD 15-Feb-2020 13:03:44
[2020-02-15 13:52] LABS: URINE AMPHETAMINES SCREEN NEGATIVE; URINE BARBITURATES SCREEN NEGATIVE; URINE BENZODIAZEPINES SCREEN NEGATIVE; URINE COCAINE SCREEN NEGATIVE; URINE MARIJUANA (THC) SCREEN NEGATIVE; URINE METHADONE SCREEN NEGATIVE; URINE PHENCYCLIDINE SCREEN NEGATIVE
--- NOTE | 2020-02-15 13:59 | ER Document Report ---
ED General - General TRAVEL OUTSIDE OF THE [place] IN LAST 30 DAYS: No <LINDA DUPONT - Last Filed: 02/15/20 16:21> <JOI LOPEZ - Last Filed: 02/15/20 17:02> <CLEMENCIA FAIR JR - Last Filed: 02/15/20 17:21> - General Chief Complaint: Dizziness Stated Complaint: BLURRY VISION/ABDOMINAL PAIN/DIZZINESS Time Seen by Provider: 02/15/20 11:01 Primary Care Provider: [facility] [Outside] - Follow up as needed LOCALMD,YENIFER [Primary Care Provider] - Follow up as needed - HPI Notes: Chief complaint: Multiple concerns History of present illness: 24-year-old male with past history of ADHD, chronic anxiety/depression, and "anger management issues" who has not seen a mental health provider in over 5 years and currently is on no medications now presents to the emergency department with 3 to 4-month history of concern about multiple symptoms. Patient says he does not sleep well at night other times sleeps so soundly that his family has difficulty waking him up. He drinks 40 ounces of beer at a time about 3 times a week. He denies any drug abuse. He says he frequently wakes up with a very dry mouth. At times he has slight nausea and cramping in his abdomen. He denies vomiting. He denies diarrhea. He is not on any prescription medication at this time. He has no known allergies. He is a pack per day cigarette smoker. He has been working construction. Currently lives with his mother. Patient denies any current homicidal/suicidal ideation but says he has had such thoughts in the past. He denies auditory visual hallucinations. (LINDA DUPONT) - Related Data Allergies/Adverse Reactions: No Known Allergies Allergy (Unverified 04/23/19 20:57) Past Medical History - General Information source: Patient - Social History Smoking Status: Current Every Day Smoker Chew tobacco use (# tins/day): No Frequency of alcohol use: Heavy Drug Abuse: None Occupation: Construction Lives with: Family Family History: Reviewed & Not Pertinent Pulmonary Medical History: Reports: Hx Asthma Psychiatric Medical History: Reports: Hx Anxiety, Hx Attention Deficit Hyperactivity Disorder, Hx Depression Traumatic Medical History: Reports: Hx Fractures - Clavicle <LINDA DUPONT - Last Filed: 02/15/20 16:21> Review of Systems <LINDA DUPONT - Last Filed: 02/15/20 16:21> - Review of Systems Notes: Constitutional: Negative for fever. HENT: Negative for sore throat. Eyes: Occasional blurred vision. Cardiovascular: Negative for chest pain. Respiratory: Negative for shortness of breath. Gastrointestinal: As per HPI. Genitourinary: Urinary frequency. Musculoskeletal: Negative for back pain. Skin: Negative for rash. Neurological: As per HPI. 10 point ROS negative except as marked above and in HPI. (LINDA DUPONT) Physical Exam <LINDA DUPONT - Last Filed: 02/15/20 16:21> - Vital signs Vitals: Temp Pulse Resp BP Pulse Ox 98.1 F 63 16 127/77 H 99 02/15/20 11:06 02/15/20 11:06 02/15/20 11:06 02/15/20 11:06 02/15/20 11:06 - Notes Notes: GENERAL: Slender male approximately stated age appearing in no acute distress. SKIN: Good turgor no rashes. HEAD: Normocephalic atraumatic. EYES: PERRLA. EOMI. Conjunctivae and sclerae clear. EARS: CANALS AND TMS CLEAR. NOSE: CLEAR. MOUTH: Moist mucosa. Good dentition. No stridor or edema. No drooling. NECK: Supple. No masses or thyromegaly. No adenopathy. Carotids 2+ without bruits. No JVD. BACK: Symmetrical without tenderness. CHEST: Respirations unlabored. Breath sounds clear and symmetrical. HEART: Regular rhythm. No murmur gallop or rub. ABDOMEN: Soft nontender without masses, organomegaly or rebound. Bowel sounds normally active. No bruits. GENITALIA: Deferred. EXTREMITIES: No edema. No calf tenderness. Cap refill less than 1.5 seconds. Dorsalis pedis and posterior tibial pulses 3+ and symmetrical. NEUROLOGICAL: GCS 15. Alert and oriented x3. Normal gait. Fluent speech. Cranial nerves II through XII intact. Sensorimotor and cerebellar normal. Normal tone. PSYCHIATRIC: Flat affect. (LINDA DUPONT) Course - Laboratory Result Diagrams: 02/15/20 11:22 02/15/20 11:22 <LINDA DUPONT - Last Filed: 02/15/20 16:21> - Laboratory Result Diagrams: 02/15/20 11:22 02/15/20 11:22 <JOI LOPEZ - Last Filed: 02/15/20 17:02> - Laboratory Result Diagrams: 02/15/20 11:22 02/15/20 11:22 <CLEMENCIA FAIR JR - Last Filed: 02/15/20 17:21> - Re-evaluation Re-evalutation: 02/15/20 14:04 CBC, urinalysis, urine drug screen and comprehensive metabolic profile are all normal. I think this man is having issues related to anxiety/depression. I recommend evaluation by behavioral health service and referral for further outpatient mental health evaluation/management services. Findings, clinical impression and plan of treatment have been discussed with patient/family. Understanding of current findings and recommendations has been acknowledged by them and there is agreement regarding disposition and follow-up. (LINDA DUPONT) - Vital Signs Vital signs: Temp Pulse Resp BP Pulse Ox 98.1 F 63 16 127/77 H 99 02/15/20 11:06 02/15/20 11:06 02/15/20 11:06 02/15/20 11:06 02/15/20 11:06 - Laboratory Laboratory results interpreted by me: 02/15/20 11:22 Lipase 22.9 L Critical Care Note <CLEMENCIA FAIR JR - Last Filed: 02/15/20 17:21> - Critical Care Note Comments: Please be advised that mental health evaluated this patient and recommended Zyprexa 2.5 mg p.o. twice daily (CLEMENCIA FAIR JR) Discharge <LINDA DUPONT - Last Filed: 02/15/20 16:21> <JOI LOPEZ - Last Filed: 02/15/20 17:02> <CLEMENCIA FAIR JR - Last Filed: 02/15/20 17:21> - Discharge Clinical Impression: Anxiety, generalized Bipolar disorder, unspecified Qualifiers: Active/Remission status: remission status unspecified Qualified Code(s): F31.9 - Bipolar disorder, unspecified Condition: Stable Disposition: HOME, SELF-CARE Additional Instructions: Also mental health recommends Zyprexa year 2.5 mg once daily you have been evaluated both medical and behavioral teams have been deemed appropriate for discharge. You are recommended to start Zyprexa 2.5 mg twice daily; please take as directed. You have been provided local resource list of area providers including mobile crisis contact information. Please make an appointment within the next 3 to 5 days for continued medication management. You were also recommended to engage in therapeutic services to assist in interpreting your environment, understanding your triggers and building your positive coping skills. Bipolar Disorder Bipolar disorder is also called manic-depressive disorder. Depression alternates with brain hyperactivity called feliberto. Each phase lasts from several days to a few weeks. We don't know exactly what causes bipolar disorder, but it's treatable. During the "manic phase," you may feel elated and energetic. You may have racing thoughts, rapid speech, increased activity, and grandiose ideas. During this time, you may not realize how poor your judgement is. Inappropriate spending, drug abuse, excessive alcohol use, marriage problems, and irresponsible sexual behavior are common during the manic phase. During the "depressive phase," you might feel depressed, guilty, worthless, fatigued, and unable to concentrate. You might have thoughts of suicide. Good treatments are available for bipolar disorder. [place] is a classic drug for bipolar disorder, and is still often useful. If the manic phase is very mild, an antidepressant alone can be prescribed. If the manic phase is very severe, an antipsychotic medicine (such as Haldol) may be needed. The treatment must be matched to your symptoms, so it's important to work closely with your psychiatric care provider. Contact your physician, the hospital emergency center, crisis line, or your counsellor if you are losing control or having self-destructive thoughts. AT ANY TIME, IF YOUR SYMPTOMS CHANGE SIGNIFICANTLY OR WORSEN OR YOU DEVELOP NEW SYMPTOMS, RETURN TO THE EMERGENCY DEPARTMENT IMMEDIATELY FOR RE-EVALUATION. Also mental health advises Zyprexa 2.5 mg by mouth twice a day take your medicines as directed. Encourage fluids return to ER for true emergencies follow-up with your personal mental health and personal doctor. Prescriptions: Olanzapine [Zyprexa 2.5 mg Tablet] 2.5 mg PO BID #30 tablet Referrals: LOCALMD,NO [Primary Care Provider] - Follow up as needed [facility] [Outside] - Follow up as needed
[2020-02-15] MEDS ORDERED: OLANZAPINE 2.5 MG TABLET PO ONE (17:21)
[2020-02-15 17:46] VITALS: BP 124/76
== END 2020-02-15 17:46 | disposition home or self-care (01) ==
LOC: ER 10:40
DX: F41.9 Anxiety disorder, unspecified (principal); F31.9 Bipolar disorder, unspecified; R42 Dizziness and giddiness; H53.8 Other visual disturbances; R10.9 Unspecified abdominal pain; R11.0 Nausea; F17.210 Nicotine dependence, cigarettes, uncomplicated
CPT/HCPCS: 93005; 99284; 36415; 82962; 83690; 85025; 80053; 81001; 80307; 93010; J3490